=== PATIENT | female | born 1960 | race African-American/Black ===

== ENCOUNTER 2021-09-23 14:34 | Emergency (ER) | payer OTHER ==
[~2021-09-23] VITALS: Ht 175.3 cm; Wt 105.0 kg
[2021-09-23 15:21] VITALS: BP 128/86
[2021-09-23] MEDS ORDERED: ALBU6.7H9 INH ×3 (15:32→15:33)
[2021-09-23] MEDS ORDERED: LEVO200T8 MT (15:33)
[2021-09-23] MEDS ORDERED: IBUP-2029 MT (15:33)
[2021-09-23] MEDS ORDERED: HYDR10TA34 MT (15:33)
[2021-09-23] MEDS ORDERED: FLUT16SP15 BOTHNSTRLS (15:50)
[2021-09-23] MEDS ORDERED: DEXT30SU PO (15:50)
== END 2021-09-23 16:10 | disposition home or self-care (01) ==
LOC: ER 14:34
DX: Z76.0 Encounter for issue of repeat prescription (principal); E03.9 Hypothyroidism, unspecified; F41.9 Anxiety disorder, unspecified
CPT/HCPCS: 99283

== ENCOUNTER 2021-10-20 11:47 | Emergency (ER) | payer OTHER ==
[~2021-10-20] VITALS: Ht 170.2 cm; Wt 77.0 kg
[~2021-10-20 11:47] MED LIST: ALBU6.7H9 INH; DEXT30SU PO; FLUT16SP15 BOTHNSTRLS; HYDR10TA34 MT; IBUP-2029 MT; LEVO200T8 MT
[2021-10-20 12:14] VITALS: BP 124/78
[2021-10-20] MEDS ORDERED: LEVO200T8 MT (14:04)
[2021-10-20] MEDS ORDERED: ALBU6.7H9 INH (14:04)
[2021-10-20] MEDS ORDERED: HYDR10TA34 MT (14:04)
[2021-10-20] MEDS ORDERED: DIVA500T51 MT (14:04)
== END 2021-10-20 14:41 | disposition home or self-care (01) ==
LOC: ER 11:50
DX: Z76.0 Encounter for issue of repeat prescription (principal); J45.909 Unspecified asthma, uncomplicated; F31.9 Bipolar disorder, unspecified; Z98.890 Other specified postprocedural states; Z88.0 Allergy status to penicillin
CPT/HCPCS: 99283

== ENCOUNTER 2021-11-18 11:51 | Emergency (ER) | payer OTHER ==
[~2021-11-18] VITALS: Ht 172.7 cm; Wt 73.0 kg
[~2021-11-18 11:51] MED LIST changes: +ALBU6.7H3 INH; -ALBU6.7H9 INH; +DIVA500T51 MT
[2021-11-18 11:59] VITALS: BP 122/66
[2021-11-18] MEDS ORDERED: LEVO200T8 PO (12:15)
[2021-11-18] MEDS ORDERED: VALP250C3 PO (12:15)
[2021-11-18] MEDS ORDERED: ALBU6.7H3 INH (12:15)
[2021-11-18] MEDS ORDERED: HYDR10TA34 PO (12:15)
[2021-11-18] MEDS ORDERED: TUSSL PO (12:15)
== END 2021-11-18 12:33 | disposition home or self-care (01) ==
LOC: ER 11:51
DX: Z76.0 Encounter for issue of repeat prescription (principal); E03.9 Hypothyroidism, unspecified; F31.9 Bipolar disorder, unspecified; J45.909 Unspecified asthma, uncomplicated; G40.909 Epilepsy, unspecified, not intractable, without status epilepticus
CPT/HCPCS: 99281; 99283